=== PATIENT | male | born 1975 | race Two or more races ===

== ENCOUNTER 2023-09-07 21:49 | Emergency (ER) | payer OTHER ==
[~2023-09-07] VITALS: Ht 172.7 cm; Wt 108.0 kg
[2023-09-07] MEDS ORDERED: LEVETIRACETAM (500MG) 500 MG/5 ML VIAL IV ONE ×2 (22:26→22:27)
[2023-09-07] MEDS ORDERED: LORAZEPAM INJ 2 MG/ML VIAL IV ONE (22:30)
[2023-09-07 22:34] LABS: AMPHETAMINE, URINE NEGATIVE (NEGATIVE); BARBITURATE, URINE NEGATIVE (NEGATIVE); BENZODIAZEPINE, URINE NEGATIVE (NEGATIVE); CANNABINOID, URINE NEGATIVE (NEGATIVE); COCCAINE, URINE NEGATIVE (NEGATIVE); OPIATE, URINE NEGATIVE (NEGATIVE); PHENCYCLIDINE SCREEN,URINE NEGATIVE (NEGATIVE)
[2023-09-07] MEDS ORDERED: LORAZEPAM 1 MG TABLET ONE (22:34)
[2023-09-07] MEDS: LORAZEPAM 1 MG TABLET PO ONE (22:41)
[2023-09-07] MEDS: LEVETIRACETAM (500MG) 1,000 MG in IV NS 0.9% 90 ML IV SCH (22:41)
[2023-09-07 23:28] LABS: BASOPHILS % (AUTO) 0.3 % (0.0-2.0); EOSINOPHILS # (AUTO) 0.1 K/uL (0.0-0.7); HEMATOCRIT 44 % (39-51); HEMOGLOBIN 14.4 g/dL (13.5-17.5); LYMPHOCYTES # (AUTO) 1.8 K/uL (0.8-4.8); LYMPHOCYTES % (AUTO) 13.1 % (20.0-44.0); MEAN CORPUSCULAR HEMOGLOBIN 30 PG (26.0-33.0); MEAN CORPUSCULAR HGB CONC 33 g/dl (31.0-36.0); MEAN CORPUSCULAR VOLUME 90 fL (80-96); MONOCYTES # (AUTO) 0.9 K/uL (0.1-1.30); MONOCYTES % (AUTO) 6.7 % (2.0-12.0); NEUTROPHILS # (AUTO) 10.7 K/uL (1.8-8.9); NEUTROPHILS % (AUTO) 78.9 % (43.0-81.0); PLATELET COUNT (AUTO) 152 K/uL (150-450); RED BLOOD CELL COUNT(AUTO) 4.86 MIL/uL (4.5-6.0); RED CELL DISTRIBUTION WIDTH 13.7 % (11.5-15.0); WHITE BLOOD COUNT (AUTO) 13.5 K/uL (4.3-11.0)
[2023-09-07 23:45] LABS: CALCIUM, SERUM 9.3 mg/dL (8.5-10.1); CARBON DIOXIDE 24 mmol/L (21-32); CHLORIDE 97 mmol/L (98-107); CREATININE 1.3 mg/dL (0.6-1.3); GLUCOSE 205 mg/dL (74-106); POTASSIUM 2.9 mmol/L (3.5-5.1); SODIUM SERUM 136 mmol/L (136-145); UREA NITROGEN, BLOOD 10 mg/dL (7-18)
[2023-09-07 23:47] LABS: ALCOHOL, BLOOD < 3 mg/dL (0-10)
[2023-09-07] MEDS ORDERED: POTA-58 PO (23:53)
[2023-09-07] MEDS ORDERED: IBUP-1953 PO (23:53)
[2023-09-07] MEDS ORDERED: LEVE500T9 PO (23:53)
[2023-09-07] MEDS ORDERED: POTASSIUM CHLORIDE 20 MEQ TAB.PRT.SR PO ONE (23:59)
[2023-09-08] MEDS: POTASSIUM CHLORIDE 20 MEQ TAB.PRT.SR PO ONE (00:07)
[2023-09-08 00:33] VITALS: BP 156/84; TEMP 98.2; O2SAT 99
== END 2023-09-08 00:33 | disposition home or self-care (01) ==
LOC: ER 21:53
DX: R56.9 Unspecified convulsions (principal); E87.6 Hypokalemia; M25.531 Pain in right wrist; E11.9 Type 2 diabetes mellitus without complications
CPT/HCPCS: 99284; 96365; 73110; 85025; 80048; 36415; 80320; 80307; J7030 ×2; J1953 ×3; G0480

== ENCOUNTER 2023-09-09 11:24 | Emergency (ER) | payer OTHER ==
[~2023-09-09] VITALS: Ht 172.7 cm; Wt 106.6 kg
[~2023-09-09 11:24] MED LIST: IBUP-1953 PO; LEVE500T9 PO; POTA-58 PO
[2023-09-09 12:56] VITALS: TEMP 98.5
[2023-09-09 13:15] VITALS: BP 140/86; O2SAT 99
== END 2023-09-09 13:16 | disposition home or self-care (01) ==
LOC: ER 11:28
DX: S42.251A Displaced fracture of greater tuberosity of right humerus, initial encounter for closed fracture (principal); E11.9 Type 2 diabetes mellitus without complications; X58.XXXA Exposure to other specified factors, initial encounter; Y93.89 Activity, other specified; Y92.89 Other specified places as the place of occurrence of the external cause; Y99.8 Other external cause status
CPT/HCPCS: 73030-TC

== ENCOUNTER 2023-10-28 11:46 | Emergency (ER) | payer OTHER ==
[~2023-10-28] VITALS: Ht 172.7 cm; Wt 93.0 kg
[2023-10-28 12:14] VITALS: BP 180/98; TEMP 98.4
[2023-10-28] MEDS ORDERED: LEVE500T9 PO (12:22)
[2023-10-28 12:51] VITALS: O2SAT 98
== END 2023-10-28 12:52 | disposition home or self-care (01) ==
LOC: ER 11:46
DX: R56.9 Unspecified convulsions (principal); E11.9 Type 2 diabetes mellitus without complications; Z79.899 Other long term (current) drug therapy

== ENCOUNTER 2024-10-22 07:55 | Emergency (ER) | payer OTHER ==
[~2024-10-22] VITALS: Ht 172.7 cm; Wt 81.6 kg
[2024-10-22 08:47] LABS: BASOPHILS % (AUTO) 0.4 % (0.0-2.0); EOSINOPHILS # (AUTO) 0.1 K/uL (0.0-0.7); EOSINOPHILS % (AUTO) 1.7 % (0.0-6.0); HEMATOCRIT 47 % (39-51); HEMOGLOBIN 15.6 g/dL (13.5-17.5); LYMPHOCYTES # (AUTO) 1.1 K/uL (0.8-4.8); LYMPHOCYTES % (AUTO) 12.4 % (20.0-44.0); MEAN CORPUSCULAR HEMOGLOBIN 30 PG (26.0-33.0); MEAN CORPUSCULAR HGB CONC 33 g/dl (31.0-36.0); MEAN CORPUSCULAR VOLUME 90 fL (80-96); MONOCYTES # (AUTO) 0.5 K/uL (0.1-1.30); MONOCYTES % (AUTO) 5.6 % (2.0-12.0); NEUTROPHILS # (AUTO) 6.8 K/uL (1.8-8.9); NEUTROPHILS % (AUTO) 79.9 % (43.0-81.0); PLATELET COUNT (AUTO) 171 K/uL (150-450); RED BLOOD CELL COUNT(AUTO) 5.26 MIL/uL (4.5-6.0); RED CELL DISTRIBUTION WIDTH 12.9 % (11.5-15.0); WHITE BLOOD COUNT (AUTO) 8.5 K/uL (4.3-11.0)
[2024-10-22 08:56] LABS: CALCIUM, SERUM 8.8 mg/dL (8.5-10.1); CARBON DIOXIDE 29 mmol/L (21-32); CHLORIDE 102 mmol/L (98-107); CREATININE 1.3 mg/dL (0.6-1.3); GLUCOSE 245 mg/dL (74-106); POTASSIUM 4.1 mmol/L (3.5-5.1); SODIUM SERUM 137 mmol/L (136-145); UREA NITROGEN, BLOOD 16 mg/dL (7-18)
[2024-10-22] MEDS: LEVETIRACETAM (500MG) 1,000 MG in IV NS 0.9% 90 ML IV SCH (09:00)
[2024-10-22 09:01] LABS: ALANINE AMINOTRANSFERASE 23 U/L (12-78); ALBUMIN 3.7 g/dL (3.4-5.0); ALCOHOL, BLOOD < 3 mg/dL (0-10); ALKALINE PHOSPHATASE 112 U/L (46-116); ASPARTATE AMINOTRANSFERASE 23 U/L (15-37); BILIRUBIN,DIRECT 0.1 mg/dL (0.0-0.2); BILIRUBIN,TOTAL 0.4 mg/dL (0.2-1.0); TOTAL PROTEIN, SERUM 8.6 g/dL (6.4-8.2)
[2024-10-22] MEDS: IV NS 0.9% 1,000 ML BAG IV ONE (09:04)
[2024-10-22 09:55] LABS: AMPHETAMINE, URINE NEGATIVE (NEGATIVE); BARBITURATE, URINE NEGATIVE (NEGATIVE); BENZODIAZEPINE, URINE NEGATIVE (NEGATIVE); CANNABINOID, URINE NEGATIVE (NEGATIVE); COCCAINE, URINE NEGATIVE (NEGATIVE); OPIATE, URINE NEGATIVE (NEGATIVE); PHENCYCLIDINE SCREEN,URINE NEGATIVE (NEGATIVE)
[2024-10-22] MEDS ORDERED: LEVE500T9 PO (11:24)
[2024-10-22 12:43] VITALS: BP 152/105; TEMP 97.9; O2SAT 97
== END 2024-10-22 15:01 | disposition home or self-care (01) ==
LOC: ER 08:05
DX: G40.909 Epilepsy, unspecified, not intractable, without status epilepticus (principal); E11.65 Type 2 diabetes mellitus with hyperglycemia; Z79.899 Other long term (current) drug therapy; Z87.820 Personal history of traumatic brain injury
CPT/HCPCS: 99285; 96365; 93005; 71045; 70450; 85025; 80048; 80076; 36415; 82962; 80320; 80307; J7030 ×2; J1953; G0480